=== PATIENT | male | born 1970 | race African-American/Black ===

== ENCOUNTER 2017-04-27 00:27 | Emergency (ER) | payer SELFPAY ==
[2017-04-27 00:29] VITALS: BP 145/74; PULSE 67; RESP 16; TEMP 98.7; O2SAT 100
[2017-04-27 00:52] VITALS: BP 129/74; PULSE 72; RESP 16; O2SAT 100
[2017-04-27] MEDS ORDERED: SODIUM CHLOR 0.9% 1000 ML INJ 1,000 ML IV SCH (00:55)
[2017-04-27] MEDS ORDERED: SODIUM CHLOR 0.9% 1000 ML INJ 1,000 ML IV ONE (01:00)
[2017-04-27] MEDS ORDERED: SODIUM CHLORIDE 0.9% FLUSH 10 ML FLUSH IV FLUSH PRN (01:00)
[2017-04-27] MEDS ORDERED: IOHEXOL 350 MG/ML 10 ML VIAL (for RAD DIAG) IVCONTRAST ONE (01:06)
[2017-04-27 01:11] VITALS: O2SAT 99
[2017-04-27 01:42] LABS: ALKALINE PHOSPHATASE 71 U/L (45-117); ALT (GPT) 24 U/L (12-78); TOTAL BILIRUBIN ADULT 0.3 MG/DL (0.2-1.0)
[2017-04-27 01:43] LABS: ANION GAP 8 MEQ/L (5-15); AST (GOT) 20 U/L (15-37); BICARBONATE 24.8 MEQ/L (21.0-32.0); BLOOD UREA NITROGEN 10 MG/DL (7-18); CHLORIDE 102 MEQ/L (98-107); GLOMERULAR FILTRATION RATE 60 ML/MIN (>89); SODIUM (NA) 135 MEQ/L (136-145)
[2017-04-27 01:44] LABS: POTASSIUM 3.8 MEQ/L (3.5-5.1)
[2017-04-27 01:48] LABS: AUTOMATED NEUTROPHIL # 3.2 TH/MM3 (1.8-7.7); BASOPHIL # 0.1 TH/MM3 (0-0.2); BASOPHIL % 1.2 % (0.0-2.0); EOSINOPHIL # 0.2 TH/MM3 (0-0.4); EOSINOPHIL % 3.1 % (0.0-4.0); HEMATOCRIT 36.3 % (39.0-51.0); HEMO FLAGS DIFF FINAL; LYMPH % 42.9 % (9.0-44.0); MEAN CELL VOLUME 95.6 FL (80.0-100.0); MEAN CORPUSCULAR HGB CONC 34.5 % (32.0-36.0); MONO % 6.5 % (0.0-8.0); NEUT % 46.3 % (16.0-70.0); PLATELET COUNT 303 TH/MM3 (150-450); RED BLOOD COUNT 3.79 MIL/MM3 (4.50-5.90); RED CELL DISTRIBUTION WIDTH 12.7 % (11.6-17.2); WHITE BLOOD COUNT 6.9 TH/MM3 (4.0-11.0)
--- NOTE | 2017-04-27 01:55 | RADRPT ---
EXAM DATE/TIME: 04/27/2017 01:06 [facility] COMPARISON: No previous studies available for comparison. INDICATIONS : Right lower quadrant pain; possible appendicitis. IV CONTRAST: 96 cc Omnipaque 350 (iohexol) IV ORAL CONTRAST: No oral contrast ingested. RADIATION DOSE: 8.00 CTDIvol (mGy) MEDICAL HISTORY : Diabetes mellitus type 2. SURGICAL HISTORY : None. ENCOUNTER: Initial ACUITY: 1 day PAIN SCALE: 7/10 LOCATION: Right lower quadrant abdomen TECHNIQUE: Volumetric scanning of the abdomen and pelvis was performed. Using automated exposure control and ad justment of the mA and/or kV according to patient size, radiation dose was kept as low as reasonably achievable to obtain optimal diagnostic quality images. DICOM format image data is available electro nically for review and comparison. FINDINGS: LOWER LUNGS: The visualized lower lungs are clear. LIVER: Homogeneous density without lesion. There is no dilation of the biliary tree. The gallbladder is co ntracted. No calcified gallstones. SPLEEN: Normal size without lesion. PANCREAS: Within normal limits. KIDNEYS: Normal in size and shape. There is no mass, stone or hydronephrosis. 1.5 cm cortical cyst medial up per pole left kidney. ADRENAL GLANDS: Within normal limits. VASCULAR: There is no aortic aneurysm. BOWEL/MESENTERY: No dilated loops of small or large bowel. Mild amount of stool throughout the colon. The appendix i s identified medial to the cecum, measures 6 mm in size and lumen contains gas. No induration in the right lower quadrant and no evidence of free fluid. ABDOMINAL WALL: Within normal limits. RETROPERITONEUM: There is no lymphadenopathy. BLADDER: No wall thickening or mass. REPRODUCTIVE: Within normal limits. INGUINAL: There is no lymphadenopathy or hernia. MUSCULOSKELETAL: Mild degenerative changes in the posterior elements of the lumbar spine. CONCLUSION: Negative CT abdomen/pelvis with contrast. No radiographic evidence of appendicitis. Oscar Viera MD on April 27, 2017 at 1:50 Board Certified Radiologist. This report was verified electronically.
--- NOTE | 2017-04-27 02:27 | PD ---
HPI Chief Complaint: Diabetic Time Seen by Provider: 00:48 Travel History International Travel<30 days: No Contact w/Intl Traveler<30days: No Traveled to known affect area: No History of Present Illness HPI Is a 47-year-old man who presents to the emergency department complaining of stomach pain starting today. His a history of diabetes and hasn't really been taking his metformin regularly. He endorses increased urination, nausea, no vomiting. Abdominal pain really started today. Similar pains off and on the past but over the bed. States just occasional alcohol, no NSAIDs, no other complaints. No significant abdominal surgeries. History Past Medical History Narrative Medical Diabetes Past Surgical History Surgical History: No Previous Surgery Social History Alcohol Use: No (OCCASIONALLY ) Tobacco Use: No Allergies-Medications (Allergen,Severity, Reaction): Coded Allergies: No Known Allergies (Unverified , 04/27/17) Review of Systems Except as stated in HPI: all other systems reviewed are Neg Physical Exam Narrative GENERAL: Well-appearing 47-year-old man, no acute distress. SKIN: Focused skin assessment warm/dry. HEAD: Atraumatic. Normocephalic. NECK: Trachea midline. No JVD. CARDIOVASCULAR: Regular rate and rhythm. No murmur appreciated. RESPIRATORY: No accessory muscle use. Clear to auscultation. Breath sounds equal bilaterally. GASTROINTESTINAL: Abdomen is flat and soft. He has some lower abdominal tenderness, particularly the right lower quadrant. No rebound or guarding. And MUSCULOSKELETAL: No obvious deformities. No edema. NEUROLOGICAL: Awake and alert. No obvious cranial nerve deficits. Motor grossly within normal limits. Normal speech. Data Data Last Documented VS Vital Signs Date Time Temp Pulse Resp B/P (MAP) Pulse Ox O2 Delivery O2 Flow Rate FiO2 04/27/17 01:11 99 Room Air 04/27/17 00:52 72 16 04/27/17 00:29 98.7 Orders Orders Complete Blood Count With Diff (04/27/17 00:55) Comprehensive Metabolic Panel (04/27/17 00:55) Lipase (04/27/17 00:55) Urinalysis - C+S If Indicated (04/27/17 00:55) Ct Abd/Pel W Iv Contrast(Rout) (04/27/17 00:55) Iv Access Insert/Monitor (04/27/17 00:55) Ecg Monitoring (04/27/17 00:55) Oximetry (04/27/17 00:55) NPO (04/27/17 00:55) Sodium Chlor 0.9% 1000 Ml Inj (Ns 1000 M (04/27/17 00:55) Sodium Chloride 0.9% Flush (Ns Flush) (04/27/17 01:00) Sodium Chlor 0.9% 1000 Ml Inj (Ns 1000 M (04/27/17 01:00) Labs Laboratory Tests Test 04/27/17 01:00 04/27/17 02:10 White Blood Count 6.9 TH/MM3 Red Blood Count 3.79 MIL/MM3 Hemoglobin 12.5 GM/DL Hematocrit 36.3 % Mean Corpuscular Volume 95.6 FL Mean Corpuscular Hemoglobin 33.0 PG Mean Corpuscular Hemoglobin Concent 34.5 % Red Cell Distribution Width 12.7 % Platelet Count 303 TH/MM3 Mean Platelet Volume 7.8 FL Neutrophils (%) (Auto) 46.3 % Lymphocytes (%) (Auto) 42.9 % Monocytes (%) (Auto) 6.5 % Eosinophils (%) (Auto) 3.1 % Basophils (%) (Auto) 1.2 % Neutrophils # (Auto) 3.2 TH/MM3 Lymphocytes # (Auto) 3.0 TH/MM3 Monocytes # (Auto) 0.4 TH/MM3 Eosinophils # (Auto) 0.2 TH/MM3 Basophils # (Auto) 0.1 TH/MM3 CBC Comment DIFF FINAL Differential Comment Blood Urea Nitrogen 10 MG/DL Creatinine 1.53 MG/DL Random Glucose 358 MG/DL Total Protein 6.8 GM/DL Albumin 3.2 GM/DL Calcium Level 8.1 MG/DL Alkaline Phosphatase 71 U/L Aspartate Amino Transf (AST/SGOT) 20 U/L Alanine Aminotransferase (ALT/SGPT) 24 U/L Total Bilirubin 0.3 MG/DL Sodium Level 135 MEQ/L Potassium Level 3.8 MEQ/L Chloride Level 102 MEQ/L Carbon Dioxide Level 24.8 MEQ/L Anion Gap 8 MEQ/L Estimat Glomerular Filtration Rate 60 ML/MIN Lipase 150 U/L Urine Color LIGHT-YELLOW Urine Turbidity CLEAR Urine pH 5.5 Urine Specific [place] GREATER THAN 1.050 Urine Protein NEG mg/dL Urine Glucose (UA) 1000 mg/dL Urine Ketones NEG mg/dL Urine Occult Blood NEG Urine Nitrite NEG Urine Bilirubin NEG Urine Urobilinogen LESS THAN 2.0 MG/DL Urine Leukocyte Esterase NEG Urine WBC LESS THAN 1 /hpf Urine Mucus FEW /lpf Microscopic Urinalysis Comment CULT NOT INDICATED MDM Medical Decision Making Medical Screen Exam Complete: Yes Emergency Medical Condition: Yes Interpretation(s) LABS: CBC is unremarkable. CMP remarkable for mildly elevated creatinine, elevated glucose Lipase normal With dysuria Differential Diagnosis Gastritis, lower abdominal discomfort, appendicitis, UTI, dehydration, other Narrative Course Medical decision making This a 47-year-old man presents to the emergency department with lower abdominal discomfort. Looks well. Mild lower abdominal tenderness, especially on the right. CT with no evidence of appendicitis. Recommend supportive treatment. Diagnosis Primary Impression: Abdominal pain Additional Impression: Hyperglycemia Additional Instructions: Take metformin as prescribed. You need follow-up for care of your diabetes to prevent long-term complications such as heart attack stroke and . Return to the emergency department for any new or worsening symptoms. Med/Other Pt SpecificInfo: Prescription(s) given Scripts Metformin (Metformin) 1,000 Mg Tab 1000 MG PO BIDPC for Blood Sugar Management, #60 TAB 0 Refills With meals Prov: Christos Chang MD 04/27/17 Disposition: 01 DISCHARGE HOME Condition: Stable Christos Chang MD Apr 27, 2017 02:27
[2017-04-27 03:07] LABS: BLOOD, URINE NEG (NEG); COMMENT (UR) CULT NOT INDICATED; CULTURE IF INDICATED CULT NOT INDICATED; GLUCOSE,URINE 1000 mg/dL (NEG); KETONE, URINE NEG (NEG); MUCUS URINE FEW /lpf (OCC); NITRITE,URINE NEG (NEG); PH, URINE 5.5 (5.0-8.5); URINE COLOR LIGHT-YELLOW (YELLW/STRAW)
[2017-04-27] MEDS ORDERED: METF1000 PO (03:29)
[2017-04-27] MEDS ORDERED: INSULIN ASPART 1,000 UNITS/10 ML VIAL SQ ONE (03:30)
== END 2017-04-27 04:50 | disposition home or self-care (01) ==
LOC: NEPC 00:27
DX: R10.9 Unspecified abdominal pain (principal); E11.65 Type 2 diabetes mellitus with hyperglycemia; Z79.84 Long term (current) use of oral hypoglycemic drugs
CPT/HCPCS: 74177; 80053; 81001; 83690; 85025; 96360; 96361; 96372; 99285; J1815; J7030; Q9967

== ENCOUNTER 2017-11-06 16:20 | Emergency (ER) | payer OTHER ==
[~2017-11-06 16:20] MED LIST: METF1000 PO
[2017-11-06 16:35] VITALS: BP 140/76; PULSE 79; RESP 16; TEMP 98.7; O2SAT 99
[2017-11-06] MEDS ORDERED: METHOCARBAMOL 500 MG TAB PO ONE (17:45)
[2017-11-06] MEDS ORDERED: IBUPROFEN 800 MG TAB PO ONE (17:45)
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
[2017-11-06] MEDS ORDERED: IBUP1TAB7 PO (18:15)
[2017-11-06] MEDS ORDERED: ROBA500T PO (18:15)
== END 2017-11-06 18:28 | disposition home or self-care (01) ==
LOC: NEPK 16:20
DX: R51 Headache (principal); S16.1XXA Strain of muscle, fascia and tendon at neck level, initial encounter; V89.2XXA Person injured in unspecified motor-vehicle accident, traffic, initial encounter; E11.9 Type 2 diabetes mellitus without complications; F12.90 Cannabis use, unspecified, uncomplicated
CPT/HCPCS: 72050; 99283

== ENCOUNTER 2017-12-20 22:59 | Emergency (ER) | END 2017-12-21 00:03 | disposition home or self-care (01) | DX: N48.89 Other specified disorders of penis (principal); G62.9 Polyneuropathy, unspecified; E11.9 Type 2 diabetes mellitus without complications; R39.11 Hesitancy of micturition; Z72.0 Tobacco use ==

== ENCOUNTER 2018-01-24 01:20 | Emergency (ER) | payer SELFPAY ==
[~2018-01-24] VITALS: Ht 175.3 cm; Wt 91.3 kg
[~2018-01-24 01:20] MED LIST changes: +DOXY1CAP74 PO; +GABA300C5 PO; +ROBA500T PO
[2018-01-24 01:25] VITALS: BP 130/85; PULSE 73; RESP 18; TEMP 97.9; O2SAT 100
== END 2018-01-24 02:29 | disposition left against medical advice (07) ==
LOC: NEPD 01:20
DX: M54.9 Dorsalgia, unspecified (principal)
CPT/HCPCS: 99281